=== PATIENT | male | born 1975 | race Caucasian/White ===

== ENCOUNTER → 2017-01-17 | Outpatient (CLI) | payer BC ==
--- NOTE | 2017-01-17 14:47 | STEVAL ---
Eval Subjective and History Date/Time of Eval DATE: 01/17/17 TIME: 14:33 Medical Diagnosis other dysphagia (R13.19), cough (R05) Treatment Order: Assessment Orientations: x 3, Alert, Cooperative Primary Complaint: Coughs up phlegm after eating Pain: No Date of Onset of Primary Com: 12/2015 Prior History of This Problem: No Patient's Goals: Not expressed Significant Past Medical Hx: Medical hx not provided. Pt reported no problems. Medical History Form Reviewed: No Residence Type: Private home/apartment Lives With: Spouse Prior Functional Status: Pt ate a regular diet/liquids but reported a strong cough after eating that brings up phlegm. Current Functional Status: No significant aspiration risk. MBSS was WFL. Education Subject: Swallowing Strategies (secondary swallow intermittently during meals, alternating solids and liquids) Person(s) Educated: Patient Instruction Understanding Demo: Pt. verbalizes understand Education Comment Results of MBSS reviewed with pt. Study was within normal limits. Subjective and History Comment: Pt was alert and cooperative during assessment. Modified Barium Swallow Lateral View Oral Phase : Lateral View Food Presentation: Thin Liquid via Spoon, Thin Liquid via Straw , Honey Liquid via Spoon, Solid- Foreign Cracker, Pudding via spoon Number Presentations Lat View: 3 Labial Closure: No Impairment (WFL) Bolus Formation Pooling L/R: No Impairment (WFL) Bolus Formation Under Tongue: No Impairment (WFL) Bolus Formation Scattered Loss: No Impairment (WFL) Mastication Rotary Chew: No Impairment (WFL) A/P Lingual Propulsion Spills: No Impairment (WFL) A/P Lingual Propulsion Delay: No Impairment (WFL) Lingual Movement: No Impairment (WFL) Residue Clearing: Minimal Impairment Premature Swallow: No Impairment (WFL) Other Oral Phase Observations: Oral stage of swallow was within normal limits. Swallow Response Delay: No Impairment (WFL) Swallow Response Time 2 seconds Base of Tongue: No Impairment (WFL) Epiglottic Coverage: No Impairment (WFL) Laryngeal Elevation: No Impairment (WFL) Vallecular Retention Clearing: No Impairment (WFL) Pharyn.Wall Residue Clearing: No Impairment (WFL) Pyriform Sinus Clearing: Minimal Impairment Compensatory Strategies: Secondary Swallow, Effortful swallow Other Pharyngeal Phase Observ.: Pt demonstrated minimal residue in pyriform sinuses on pudding consistency. Pharynx cleared with secondary swallow. A/P Test Performed in standing A/P View Food Presentation: Thin Liquid via Spoon, Thin Liquid via Straw, Honey Liquid via Spoon, Solid- Foreign Cracker, Pudding via spoon Number Presentations A/P View: 2 A/P View Vocal Cord Function: Good A/P View Esophogeal Function: No Impairment (WFL) A/P View Other Observations: WFL Esophogeal Phase Impressions: No Impairment (WFL) Evaluation Start Time: 14:05 Evaluation Stop Time: 14:30 Assessment/Plan of Care Speech Therapy Impressions: Oral stage of swallow was within functional limits. Pt demonstrated no aspiration or laryngeal penetration. Pharyngeal stage of swallow showed minimal residue at the level of the pyriform sinuses that cleared with secondary swallow. AP view completed with pt in standing position. Esophageal stage of swallow was within normal limits. evaluation with recommendation to use a secondary swallow intermittently during meals and alternating solids and liquids. ST Treatment Plan: Mod. Barium Swallow Study ST Treatment Plan Frequency: N/A Treatment Plan Duration: other Plan of Care Comment Evaluation only with recommendations Date of Visit 01/17/17 Time Visit Began: 14:05 Time Visit Ended: 14:30 ST Assess/Plan of Care: ST Treatment Charge: MBSS Minutes of Individual Therapy: 25 MELISSA GARG MS CCC-ASSOCIATE MUSIC PROFESSOR Jan 17, 2017 14:37
--- NOTE | 2017-01-17 14:59 | DI ---
Indication:ITS.REASON: R05 COUGH Procedure:MODIFIED BAR. SWALLOW STUDY MODIFIED BAR. SWALLOW STUDY: Videofluoroscopy was performed in conjunction with a self pay representative from speech pathology and a separate report and recommendations will be provided. Varying gradations of barium from thin to solid were administered. There was no aspiration noted with any of the consistencies. On the AP view the bolus showed no obvious preference for either side. Impression: No aspiration seen. Please see the speech pathology report for additional details and recommendations. Fluoroscopy dose: 7.70 mGy (Cumulative air kerma) Luis Cortes RPA/LEENA performed this under my direct supervision. .
== END ==
LOC: IMA 13:48
PROVIDERS: ATTEND Family Medicine
DX: R13.19 Other dysphagia (principal); R05 Cough
CPT/HCPCS: 74230; 92611; G8996; G8997; G8998